=== PATIENT | male | born 1985 | race African-American/Black ===

== ENCOUNTER 2019-05-03 20:19 | Emergency (ER) | payer OTHER ==
[~2019-05-03] VITALS: Ht 182.9 cm; Wt 74.8 kg
[2019-05-03 21:20] LABS: HEMATOCRIT 39.9 % (42.0-52.0); MCH 27.8 pg (26.0-34.0); MCHC 32.6 g/dL (28.0-37.0); MCV 85.2 fL (80.0-100.0); PLATELET COUNT 199 thou/uL (150-400); RBC 4.69 mil/uL (4.50-6.00); RDW 13.5 % (10.5-14.5); WBC 6.8 thou/uL (4.0-11.0)
[2019-05-03 21:26] LABS: ANION GAP 6 mmol/L (7-16); BUN 13 mg/dL (7-18); CALCIUM 8.5 mg/dL (8.5-10.1); CHLORIDE 103 mmol/L (98-107); CO2 30 mmol/L (21-32); CREATININE 1.1 mg/dL (0.7-1.3); GLUCOSE 109 mg/dL (74-106); POTASSIUM 3.4 mmol/L (3.5-5.1); SODIUM 139 mmol/L (136-145)
[2019-05-03 21:31] LABS: ALBUMIN 3.7 g/dL (3.4-5.0); DIRECT BILIRUBIN < 0.1 mg/dL (<0.1-0.2); LIPASE 65 U/L (73-393); SGOT 12 U/L (15-37); SGPT 16 U/L (30-65); TOTAL BILIRUBIN 0.3 mg/dL (<0.1-1.0); TOTAL PROTEIN 6.9 g/dL (6.4-8.2)
[2019-05-03 21:50] LABS: ABSOLUTE NEUTROPHILS 3.7 thou/uL (1.4-8.2); ANISOCYTOSIS 1+
[2019-05-03] MEDS ORDERED: PRILOSEC OTC20 MG PO (23:27)
[2019-05-03] MEDS ORDERED: CARAFATE1 GM PO (23:27)
[2019-05-03] MEDS ORDERED: ZOFRAN ODT4 MG PO (23:27)
[2019-05-03 23:50] VITALS: BP 136/52
== END 2019-05-03 23:50 | disposition home or self-care (01) ==
LOC: ER 20:19
PROVIDERS: Emergency Medicine
DX: R10.13 Epigastric pain (principal); F17.210 Nicotine dependence, cigarettes, uncomplicated

== ENCOUNTER 2019-06-16 22:07 | Emergency (ER) | payer OTHER ==
[~2019-06-16] VITALS: Ht 182.9 cm; Wt 74.8 kg
[~2019-06-16 22:07] MED LIST: CARAFATE1 GM PO; PRILOSEC OTC20 MG PO; ZOFRAN ODT4 MG PO
[2019-06-16 22:44] LABS: ABSOLUTE NEUTROPHILS 4.9 thou/uL (1.4-8.2); BASOPHILS 1.3 % (0.0-2.0); EOSINOPHILS 0.5 % (0.0-3.0); HEMATOCRIT 42.6 % (42.0-52.0); LYMPHOCYTES 32.3 % (24.0-44.0); MCH 27.7 pg (26.0-34.0); MCHC 32.8 g/dL (28.0-37.0); MCV 84.3 fL (80.0-100.0); MONOCYTES 9.7 % (1.0-8.0); PLATELET COUNT 229 thou/uL (150-400); POLYS 56.2 % (36.0-66.0); RBC 5.05 mil/uL (4.50-6.00); RDW 14.2 % (10.5-14.5); WBC 8.7 thou/uL (4.0-11.0)
[2019-06-16 22:57] LABS: URINE BILIRUBIN NEGATIVE (Negative); URINE BLOOD NEGATIVE (Negative); URINE CLARITY CLEAR; URINE COLOR YELLOW; URINE GLUCOSE-RANDOM* NEGATIVE (Negative); URINE KETONES NEGATIVE (Negative); URINE LEUKOCYTES-REFLEX NEGATIVE (Negative); URINE NITRITE-REFLEX NEGATIVE (Negative); URINE PROTEIN (DIPSTICK) NEGATIVE (Negative)
[2019-06-16 22:58] LABS: CALCIUM 8.6 mg/dL (8.5-10.1); CREATININE 1.1 mg/dL (0.7-1.3); POTASSIUM 3.7 mmol/L (3.5-5.1)
[2019-06-16 23:04] LABS: ALBUMIN 4.2 g/dL (3.4-5.0); TOTAL BILIRUBIN 0.5 mg/dL (<0.1-1.0); TOTAL PROTEIN 7.4 g/dL (6.4-8.2)
[2019-06-17] MEDS ORDERED: PEPCID20 MG PO (00:32)
[2019-06-17] MEDS ORDERED: ZOFRAN ODT4 MG PO (00:32)
[2019-06-17 00:53] VITALS: BP 125/71
== END 2019-06-17 00:54 | disposition home or self-care (01) ==
LOC: ER 22:07
PROVIDERS: Emergency Medicine Emergency Medical Services
DX: R10.11 Right upper quadrant pain (principal); R10.13 Epigastric pain; R11.0 Nausea; R06.02 Shortness of breath; F17.210 Nicotine dependence, cigarettes, uncomplicated

== ENCOUNTER 2019-10-11 08:46 | Emergency (ER) | payer OTHER ==
[~2019-10-11] VITALS: Ht 182.9 cm; Wt 74.8 kg
[~2019-10-11 08:46] MED LIST changes: +PEPCID20 MG PO
[2019-10-11 09:16] LABS: URINE BLOOD NEGATIVE (Negative); URINE CLARITY CLEAR; URINE COLOR YELLOW; URINE GLUCOSE-RANDOM* NEGATIVE (Negative); URINE KETONES 2+ (Negative); URINE LEUKOCYTES-REFLEX NEGATIVE (Negative); URINE NITRITE-REFLEX NEGATIVE (Negative); URINE PROTEIN (DIPSTICK) NEGATIVE (Negative); URINE SPECIFIC GRAVITY 1.025 (1.005-1.035)
[2019-10-11 09:18] LABS: BASOPHILS 0.7 % (0.0-2.0); EOSINOPHILS 0.2 % (0.0-3.0); HEMATOCRIT 43.4 % (42.0-52.0); HEMOGLOBIN 14.3 gm/dL (14.0-18.0); LYMPHOCYTES 20.5 % (24.0-44.0); MCH 28.2 pg (26.0-34.0); MCHC 32.9 g/dL (28.0-37.0); MCV 85.6 fL (80.0-100.0); MONOCYTES 8.5 % (1.0-8.0); PLATELET COUNT 215 thou/uL (150-400); POLYS 70.1 % (36.0-66.0); RBC 5.07 mil/uL (4.50-6.00); RDW 13.7 % (10.5-14.5); WBC 7.1 thou/uL (4.0-11.0)
[2019-10-11 09:19] LABS: ICTOTEST (BILI CONFIRMATORY) Negative (Negative); URINE BILIRUBIN NEGATIVE (Negative)
[2019-10-11 09:25] LABS: CALCIUM 9.1 mg/dL (8.5-10.1)
[2019-10-11 09:26] LABS: MAGNESIUM 1.9 mg/dL (1.8-2.4)
[2019-10-11 10:30] VITALS: BP 119/66
== END 2019-10-11 10:31 | disposition home or self-care (01) ==
LOC: ER 08:46
PROVIDERS: Emergency Medicine
DX: R10.31 Right lower quadrant pain (principal); R10.11 Right upper quadrant pain; R11.10 Vomiting, unspecified; F17.210 Nicotine dependence, cigarettes, uncomplicated